=== PATIENT | female | born 1955 | race Caucasian/White ===

== ENCOUNTER 2020-12-05 11:32 | Emergency (ER) | payer MEDICARE, OTHER ==
[2020-12-05 12:26] LABS: BASO # 0.04 (0.02-0.10); EOS # 0.41 (0.04-0.40); EOS % 4.9 % (1.0-5.0); HEMATOCRIT 41.3 % (37.0-47.0); HEMOGLOBIN 13.7 g/dL (12.5-16.0); LYMPH# 2.73 (1.50-4.00); MEAN CELL VOLUME 85 fl (78-100); MEAN CORPUSCULAR HEMOGLOBIN 28 pg (27-31); MEAN CORPUSCULAR HGB CONC 33 g/dL (33-37); MEAN PLATELET VOLUME 10.2 fl (7.4-10.4); MONO # 0.72 (0.20-0.80); NEU # 4.41 (1.40-6.50); PLATELET COUNT 269 K/mm3 (130-400); RED BLOOD COUNT 4.85 M/mm3 (4.10-5.30); RED CELL DISTRIBUTION WIDTH 13.4 % (11.5-14.5); WHITE BLOOD COUNT 8.3 K/mm3 (4.8-10.8)
[2020-12-05 12:36] LABS: POTASSIUM 3.6 mmol/L (3.5-5.1); SODIUM 142 mmol/L (136-145)
[2020-12-05 12:37] LABS: CALCIUM 9.4 mg/dL (8.3-10.5)
[2020-12-05 12:38] LABS: GLUCOSE 99 mg/dL (65-105)
[2020-12-05 12:39] LABS: TOTAL PROTEIN 7.2 g/dL (6.2-8.1)
[2020-12-05 12:40] LABS: CARBON DIOXIDE 27 mmol/L (23-31); TOTAL BILIRUBIN 0.5 mg/dL (0.2-1.2)
[2020-12-05 12:44] LABS: AST-SGOT 14 U/L (5-34)
[2020-12-05 12:45] LABS: ALT/SGPT 13 U/L (0-55)
[2020-12-05 12:55] LABS: TROPONIN-I < 0.03 ng/mL (<0.030)
[2020-12-05 13:01] LABS: URINE APPEARANCE CLEAR; URINE COLOR LIGHT YELLOW
[2020-12-05 13:02] LABS: PH-URINE 5.5 (5.0 - 8.0); URINE BILIRUBIN NEGATIVE (NEGATIVE); URINE BLOOD NEGATIVE (NEGATIVE); URINE GLUCOSE NEGATIVE (NEGATIVE); URINE KETONE NEGATIVE (NEGATIVE); URINE LEUKOCYTE ESTERASE NEGATIVE (NEGATIVE); URINE NITRATE NEGATIVE (NEGATIVE); URINE PROTEIN(semi-quant) NEGATIVE (NEGATIVE); URINE UROBILINOGEN NORMAL (NORMAL); URINE WBC 0-1 /hpf (0-3)
[2020-12-05] MEDS ORDERED: LISINOPRIL10 MG PO (13:12)
[2020-12-05 14:09] VITALS: BP 175/90
== END 2020-12-05 13:44 | disposition home or self-care (01) ==
LOC: ED 11:32
PROVIDERS: Nurse Practitioner
DX: I16.0 Hypertensive urgency (principal); Z86.73 Personal history of transient ischemic attack (TIA), and cerebral infarction without residual deficits
CPT/HCPCS: J7030

== ENCOUNTER → 2020-12-27 | Outpatient (CLI) | payer MEDICARE, OTHER ==
[~2020-12-27] MED LIST: LISINOPRIL10 MG PO
[2020-12-27 11:48] LABS: BASO # 0.04 (0.02-0.10); EOS # 0.37 (0.04-0.40); EOS % 5.4 % (1.0-5.0); HEMATOCRIT 42.9 % (37.0-47.0); HEMOGLOBIN 13.6 g/dL (12.5-16.0); MEAN CELL VOLUME 87 fl (78-100); MEAN CORPUSCULAR HEMOGLOBIN 28 pg (27-31); MEAN CORPUSCULAR HGB CONC 32 g/dL (33-37); MEAN PLATELET VOLUME 9.7 fl (7.4-10.4); MONO # 0.62 (0.20-0.80); NEU # 3.75 (1.40-6.50); PLATELET COUNT 258 K/mm3 (130-400); RED BLOOD COUNT 4.92 M/mm3 (4.10-5.30); WHITE BLOOD COUNT 6.8 K/mm3 (4.8-10.8)
[2020-12-27 11:57] LABS: ALBUMIN 4.1 g/dL (3.4-4.8); POTASSIUM 3.5 mmol/L (3.5-5.1)
[2020-12-27 11:58] LABS: CALCIUM 9.5 mg/dL (8.3-10.5)
[2020-12-27 11:59] LABS: TOTAL PROTEIN 7.4 g/dL (6.2-8.1)
[2020-12-27 12:01] LABS: TOTAL BILIRUBIN 0.5 mg/dL (0.2-1.2)
== END ==
LOC: LAB 11:33
PROVIDERS: Family Medicine
DX: E78.5 Hyperlipidemia, unspecified (principal); R53.83 Other fatigue

== ENCOUNTER → 2021-03-14 | Outpatient (CLI) | payer MEDICARE, OTHER ==
[2021-03-14 14:41] LABS: BASO # 0.03 K/mm3 (0.02-0.10); EOS # 0.42 K/mm3 (0.04-0.40); EOS % 7.3 % (1.0-5.0); HEMATOCRIT 32.8 % (37.0-47.0); HEMOGLOBIN 10.4 g/dL (12.5-16.0); LYMPH# 1.61 K/mm3 (1.50-4.00); MEAN CELL VOLUME 89 fl (78-100); MEAN CORPUSCULAR HEMOGLOBIN 28 pg (27-31); MEAN CORPUSCULAR HGB CONC 32 g/dL (33-37); MEAN PLATELET VOLUME 9.5 fl (7.4-10.4); MONO # 0.57 K/mm3 (0.20-0.80); NEU # 3.09 K/mm3 (1.40-6.50); PLATELET COUNT 320 K/mm3 (130-400); RED BLOOD COUNT 3.67 M/mm3 (4.10-5.30); RED CELL DISTRIBUTION WIDTH 14.4 % (11.5-14.5); WHITE BLOOD COUNT 5.8 K/mm3 (4.8-10.8)
[2021-03-14 14:46] LABS: ALBUMIN 3.6 g/dL (3.4-4.8); POTASSIUM 4.1 mmol/L (3.5-5.1)
[2021-03-14 14:48] LABS: CALCIUM 9.5 mg/dL (8.3-10.5)
[2021-03-14 14:49] LABS: TOTAL PROTEIN 6.7 g/dL (6.2-8.1)
[2021-03-14 14:51] LABS: TOTAL BILIRUBIN 0.5 mg/dL (0.2-1.2)
== END ==
LOC: LAB 14:19
PROVIDERS: Family Medicine
DX: D72.829 Elevated white blood cell count, unspecified (principal); I10 Essential (primary) hypertension

== ENCOUNTER → 2021-08-19 | Outpatient (CLI) | payer MEDICARE, OTHER ==
[2021-08-19 12:14] LABS: ALBUMIN 4.2 g/dL (3.4-4.8); BASO # 0.07 K/mm3 (0.02-0.10); EOS # 0.67 K/mm3 (0.04-0.40); EOS % 7.9 % (1.0-5.0); HEMATOCRIT 40.9 % (37.0-47.0); HEMOGLOBIN 12.9 g/dL (12.5-16.0); LYMPH# 1.99 K/mm3 (1.50-4.00); MEAN CELL VOLUME 85 fl (78-100); MEAN CORPUSCULAR HEMOGLOBIN 27 pg (27-31); MEAN CORPUSCULAR HGB CONC 32 g/dL (33-37); MEAN PLATELET VOLUME 10.1 fl (7.4-10.4); MONO # 0.75 K/mm3 (0.20-0.80); NEU # 4.93 K/mm3 (1.40-6.50); PLATELET COUNT 285 K/mm3 (130-400); POTASSIUM 3.9 mmol/L (3.5-5.1); RED BLOOD COUNT 4.83 M/mm3 (4.10-5.30); RED CELL DISTRIBUTION WIDTH 14.4 % (11.5-14.5); WHITE BLOOD COUNT 8.5 K/mm3 (4.8-10.8)
[2021-08-19 12:17] LABS: TOTAL PROTEIN 7.3 g/dL (6.2-8.1)
[2021-08-19 12:19] LABS: TOTAL BILIRUBIN 0.5 mg/dL (0.2-1.2)
== END ==
LOC: LAB 11:19
PROVIDERS: Family Medicine
DX: Z00.00 Encounter for general adult medical examination without abnormal findings (principal); Z12.11 Encounter for screening for malignant neoplasm of colon; Z12.31 Encounter for screening mammogram for malignant neoplasm of breast; K90.0 Celiac disease; I12.9 Hypertensive chronic kidney disease with stage 1 through stage 4 chronic kidney disease, or unspecified chronic kidney disease; N18.2 Chronic kidney disease, stage 2 (mild); F32.9 Major depressive disorder, single episode, unspecified; E78.5 Hyperlipidemia, unspecified; E66.9 Obesity, unspecified; E55.9 Vitamin D deficiency, unspecified

== ENCOUNTER → 2022-01-09 | Outpatient (CLI) | payer MEDICARE, OTHER ==
[2022-01-09 16:44] LABS: BASO # 0.05 K/mm3 (0.02-0.10); EOS # 0.68 K/mm3 (0.04-0.40); EOS % 6.5 % (1.0-5.0); HEMATOCRIT 40.1 % (37.0-47.0); HEMOGLOBIN 12.6 g/dL (12.5-16.0); MEAN CELL VOLUME 86 fl (78-100); MEAN CORPUSCULAR HEMOGLOBIN 27 pg (27-31); MEAN CORPUSCULAR HGB CONC 31 g/dL (33-37); NEU # 6.71 K/mm3 (1.40-6.50); PLATELET COUNT 303 K/mm3 (130-400); RED BLOOD COUNT 4.67 M/mm3 (4.10-5.30); RED CELL DISTRIBUTION WIDTH 14.9 % (11.5-14.5); WHITE BLOOD COUNT 10.5 K/mm3 (4.8-10.8)
[2022-01-09 16:54] LABS: ALBUMIN 4.1 g/dL (3.4-4.8); POTASSIUM 4.2 mmol/L (3.5-5.1)
[2022-01-09 16:56] LABS: CALCIUM 10.1 mg/dL (8.3-10.5)
[2022-01-09 16:57] LABS: TOTAL PROTEIN 7.3 g/dL (6.2-8.1)
[2022-01-09 16:59] LABS: TOTAL BILIRUBIN 0.4 mg/dL (0.2-1.2)
== END ==
LOC: LAB 16:23
PROVIDERS: Family Medicine
DX: Z00.00 Encounter for general adult medical examination without abnormal findings (principal); E78.5 Hyperlipidemia, unspecified; K90.0 Celiac disease; I12.9 Hypertensive chronic kidney disease with stage 1 through stage 4 chronic kidney disease, or unspecified chronic kidney disease; N18.2 Chronic kidney disease, stage 2 (mild); S72.025D Nondisplaced fracture of epiphysis (separation) (upper) of left femur, subsequent encounter for closed fracture with routine healing; F32.9 Major depressive disorder, single episode, unspecified; E66.9 Obesity, unspecified; E55.9 Vitamin D deficiency, unspecified; R73.9 Hyperglycemia, unspecified

== ENCOUNTER 2022-01-30 14:35 | Emergency (ER) | payer MEDICARE, OTHER ==
[~2022-01-30] VITALS: Ht 162.6 cm; Wt 90.9 kg
[2022-01-30] MEDS ORDERED: LABETALOL HCL100 MG PO (15:01)
[2022-01-30] MEDS ORDERED: HYDRALAZINE HYD50 MG PO (15:01)
[2022-01-30] MEDS ORDERED: CYMBALTA20 MG PO (15:02)
[2022-01-30] MEDS ORDERED: GOOD SENSE ASPI81 M1 PO (15:10)
[2022-01-30] MEDS ORDERED: CYMBALTA30 M1 PO (15:10)
[2022-01-30] MEDS ORDERED: NORCO 325 MG-51 TA1 PO (15:11)
[2022-01-30] MEDS ORDERED: LIDOCAINE1 EACH TP (15:12)
[2022-01-30] MEDS ORDERED: ORPHENADRINE C100 MG PO (15:12)
[2022-01-30] MEDS ORDERED: WELLBUTRIN XL300 M1 PO (15:13)
[2022-01-30 15:30] LABS: BASO # 0.05 K/mm3 (0.02-0.10); EOS # 0.52 K/mm3 (0.04-0.40); EOS % 6.2 % (1.0-5.0); HEMATOCRIT 38.4 % (37.0-47.0); HEMOGLOBIN 12.5 g/dL (12.5-16.0); LYMPH# 1.61 K/mm3 (1.50-4.00); MEAN CELL VOLUME 85 fl (78-100); MEAN CORPUSCULAR HEMOGLOBIN 28 pg (27-31); MEAN CORPUSCULAR HGB CONC 33 g/dL (33-37); MEAN PLATELET VOLUME 10.1 fl (7.4-10.4); MONO # 0.58 K/mm3 (0.20-0.80); NEU # 5.63 K/mm3 (1.40-6.50); PLATELET COUNT 273 K/mm3 (130-400); RED BLOOD COUNT 4.54 M/mm3 (4.10-5.30); RED CELL DISTRIBUTION WIDTH 14.4 % (11.5-14.5); WHITE BLOOD COUNT 8.5 K/mm3 (4.8-10.8)
[2022-01-30 15:47] LABS: ALBUMIN 3.9 g/dL (3.4-4.8); POTASSIUM 3.4 mmol/L (3.5-5.1)
[2022-01-30 15:50] LABS: TOTAL PROTEIN 6.7 g/dL (6.2-8.1)
[2022-01-30 15:52] LABS: TOTAL BILIRUBIN 0.4 mg/dL (0.2-1.2)
[2022-01-30 17:13] VITALS: BP 151/113
== END 2022-01-30 17:20 | disposition home or self-care (01) ==
LOC: ED 14:35
PROVIDERS: Nurse Practitioner Family
DX: R47.81 Slurred speech (principal); Z28.310 Unvaccinated for COVID-19; E66.01 Morbid (severe) obesity due to excess calories; Z68.34 Body mass index [BMI] 34.0-34.9, adult

== ENCOUNTER → 2022-02-09 | Outpatient (CLI) | payer MEDICARE, OTHER ==
[~2022-02-09] MED LIST changes: +CYMBALTA20 MG PO; +CYMBALTA30 M1 PO; +GOOD SENSE ASPI81 M1 PO; +HYDRALAZINE HYD50 MG PO; +LABETALOL HCL100 MG PO; +LIDOCAINE1 EACH TP; +NORCO 325 MG-51 TA1 PO; +ORPHENADRINE C100 MG PO; +WELLBUTRIN XL300 M1 PO
== END ==
LOC: RAD 12:45
DX: G31.9 Degenerative disease of nervous system, unspecified (principal); I67.82 Cerebral ischemia

== ENCOUNTER → 2022-09-01 | Outpatient (CLI) | payer MEDICARE, OTHER | LOC: RAD 11:28 | DX: M17.11 Unilateral primary osteoarthritis, right knee (principal); M76.892 Other specified enthesopathies of left lower limb, excluding foot; M76.891 Other specified enthesopathies of right lower limb, excluding foot ==